=== PATIENT | female | born 1990 | race Caucasian/White ===

== ENCOUNTER 2018-10-02 11:09 | Emergency (ER) | payer BC, SELFPAY ==
[2018-10-02 11:13] VITALS: BP 126/75; PULSE 114; RESP 18; TEMP 38.8; O2SAT 98
--- NOTE | 2018-10-02 11:18 | DI.RAD_ITS ---
SYMPTOM/DIAGNOSIS: COUGH, FEVER PA AND LATERAL CHEST: There are no prior comparison exams. The heart size is normal. The lungs are suboptimally inflated on both views. No infiltrate or effusion is identified. IMPRESSION: Negative chest xray.
--- NOTE | 2018-10-02 11:24 | ED.GENADUL_ITS ---
Discharge Plan Disposition Patient Disposition: HOME Condition: Improving Discharge Details Chief Complaint: Headache Clinical Impression: Influenza A Primary Care Provider: Socorro Cano ED Provider: Stanley Roman Home Meds and New Rx's Prescriptions: New oseltamivir [Tamiflu] 75 mg capsule 75 mg PO BID 5 Days Qty: 10 RF: 0 No Action No Known Home Meds RF: 0 Discharge Instructions Instructions: Influenza (ED) Additional Instructions: Please take Tamiflu as prescribed. Tylenol and/or ibuprofen as needed for aches, pains, fever. Home to rest today. Small, frequent sips of fluids and/or popsicles to maintain hydration. May slowly advance a bland diet. Return to the emergency department for any acute concerns. Please follow-up with regular doctor if not improving in 5 days time. Medical Decision Making 28-year-old female with 2 days of upper respiratory illness with fever, chills, myalgias. Differential diagnosis includes pneumonia, influenza, viral syndrome. Patient had IV access established, she was given a fluid bolus and ketorolac, referred for chest x-ray and laboratory testing with influenza screen. Influenza A positive. Remainder of laboratories and diagnostics: Negative chest x-ray. Normal lactate and white blood cell count. Slightly low sodium of 134. Patient improved following fluids and medications. We will treat her with a course of Tamiflu. Discussed with her home medicine as well as anticipated course of resolution. She is stable for discharge home at this time Lab Data Lab results reviewed: Yes I reviewed the patient's lab results. Laboratory Results - last 24 hr 10/02/18 10/02/18 10/02/18 12:00 12:00 12:00 WBC 6.11 RBC 4.80 Hgb 13.8 Hct 41.9 MCV 87.3 MCH 28.8 MCHC 32.9 RDW 13.9 Plt Count 226 MPV 9.7 Immature Gran % 0.2 Neutrophils % 76.2 Lymphocytes % 6.7 Monocytes % 16.5 Eosinophils % 0.2 Basophils % 0.2 Absolute Neutrophils 4.66 Absolute Lymphocytes 0.41 L Absolute Monocytes 1.01 H Absolute Eosinophils 0.01 Absolute Basophils 0.01 Sodium 134 L Potassium 3.5 Chloride 99 Carbon Dioxide 25.5 Anion Gap 9.5 BUN 6 L Creatinine 0.89 Estimated GFR/1.73 m2 >= 60.00 Glucose 105 H Lactate 0.6 Calcium 9.1 Total Bilirubin 0.5 AST 26 ALT 36 Alkaline Phosphatase 38 L Total Protein 8.2 Albumin 4.1 HPI General Mode of arrival: ambulatory . Date/Time Provider Initiated Documentation: 10/02/18 11:12 . Limitations to Documentation: no limitations . Information obtained by: patient . History of Present Illness 28 year old F presents to the emergency department with the chief complaint of Cough, congestion, fever, myalgias, headache over 2 days time., described as moderate, Quality is described as aching, and is localized to the chest. Patient reports no radiation. Patient started experiencing this day(s) and it has been constant. No relieving factors improve symptom(s), No exacerbating factors reported . Patient notes cough, fever/chills, headaches, loss of appetite and malaise. Patient did receive the following treatments prior to arrival, none Related Data Home Medications Medication Instructions Recorded Confirmed Unknown [No Known Home Meds] 10/02/18 10/02/18 oseltamivir [Tamiflu] 75 mg PO BID 5 Days #10 cap 10/02/18 Previous Rx's Medication Instructions Recorded oseltamivir [Tamiflu] 75 mg PO BID 5 Days #10 cap 10/02/18 Allergies Allergy/AdvReac Type Severity Reaction Status Date / Time codeine Allergy Unverified 10/02/18 11:20 General Stated Complaint: Headache JAYANT: 3 Review of Systems Review of Systems 8 systems reviewed and otherwise negative [facility] Social History Smoking/Tobacco Use Status: Never Exam Narrative Exam Narrative: GEN: awake, alert, oriented 3. Pleasant, well groomed, interactive. HEAD: Normocephalic, atraumatic ENT: Mucous membranes moist, oropharynx unremarkable, External ear exam unremarkable EYES: PERRL, EOMI NECK: Full ROM, no ORION, no menigismus CHEST/RESP: Nontender, clear to auscultation bilateral, no wheeze/rhonchi/rales CARDIOVASCULAR: Tachycardic in rate, no murmur, rub evelyn. 2+ Rad pulse bilateral ABDOMEN: Soft, nontender, no mass. +Bowel sounds EXT: Full ROM, no edema, no rash Neuro: Grossly normal neurologic exam, conversant, interactive. Psych: Speech fluent, thoughts congruent, affect normal Course Vital Signs Temperature 38.8 C H 10/02/18 11:13 Pulse 114 H 10/02/18 11:13 Respiratory Rate 18 10/02/18 11:13 Blood Pressure 126/75 10/02/18 11:13 Pulse Oximetry 98 10/02/18 11:13 Temperature 38.8 C H 10/02/18 11:13 Temperature Source Temporal Artery Scan 10/02/18 11:13 Pulse 114 H 10/02/18 11:13 Respiratory Rate 18 10/02/18 11:13 Respiratory Effort Non-Labored 10/02/18 11:18 Blood Pressure 126/75 10/02/18 11:13 Blood Pressure Position Supine 10/02/18 11:13 Pulse Oximetry 98 10/02/18 11:13 Oxygen Delivery Method Room Air 10/02/18 11:13 Oxygen Flow Rate 0 10/02/18 11:13 Pain Level 7 10/02/18 11:13
[2018-10-02 12:12] LABS: Lactate 0.6 mmol/L (0.6-1.4)
[2018-10-02 12:15] LABS: Abs Immature Grans 0.01 k/cumm (0.0-0.09); Absolute Basophil Count 0.01 k/cumm (0.0-0.2); Absolute Eosinophil Count 0.01 k/cumm (0.0-0.7); Absolute Lymphocyte Count 0.41 k/cumm (1.2-3.4); Absolute Monocyte Count 1.01 k/cumm (0.11-0.7); Absolute Neutrophil Count 4.66 k/cumm (1.2-6.7); Basophils % 0.2; Eosinophils % 0.2; HCT 41.9 % (36.0-46.0); HGB 13.8 g/dL (12.0-15.5); Immature Grans % 0.2; Lymphocytes % 6.7; Mean Corp. HGB Concentration 32.9 g/dL (32.0-36.0); Mean Corpuscular Hemoglobin 28.8 pg (27.0-33.0); Mean Corpuscular Volume 87.3 fL (80-95); Mean Platelet Volume 9.7 fL (8.0-11.0); Monocytes % 16.5; Neutrophils % 76.2; Platelet Count 226 x1000/uL (130-400); RBC Distribution Width 13.9 % (11.7-14.6); White Blood Cell Count 6.11 k/cumm (4.4-10.8)
[2018-10-02] MEDS: Normal Saline 1,000 ML 1000 ML IV (12:23)
[2018-10-02] MEDS: Ketorolac 30 MG/ML VIAL IVP (12:23)
--- NOTE | 2018-10-02 12:25 | DI.VRAD_ITS ---
EXAM: XR Chest, 2 Views EXAM DATE/TIME: 10/02/2018 11:23 AM CLINICAL HISTORY: 28 years old, female; Signs and symptoms; Cough and fever TECHNIQUE: XR of the chest, 2 views. COMPARISON: No relevant prior studies available. FINDINGS: Lungs: Unremarkable. No consolidation. Pleural space: Unremarkable. No pleural effusion. No pneumothorax. Heart/Mediastinum: Unremarkable. No cardiomegaly. Bones/joints: Unremarkable. IMPRESSION: No acute findings. Dictated and Authenticated by: Nhi Eaton MD. Ordering:KATY Angel MD
[2018-10-02 12:26] VITALS: BP 123/70; PULSE 106; RESP 17; TEMP 38.7
[2018-10-02 12:28] LABS: ALT 36 U/L (12-78); AST 26 U/L (15-37); Albumin 4.1 g/dL (3.4-5.0); Alkaline Phosphatase 38 U/L (46-116); Anion Gap 9.5 mmol/L (3-11); BUN 6 mg/dL (7-18); Bilirubin, Total 0.5 mg/dL (0.2-1.0); CO2 25.5 mmol/L (21.0-32.0); CREATININE 0.89 mg/dL (0.55-1.02); Calcium 9.1 mg/dL (8.5-10.1); Chloride 99 mmol/L (98-107); Glucose 105 mg/dL (70-100); Potassium 3.5 mmol/L (3.5-5.1); Sodium 134 mmol/L (136-145); Total Protein 8.2 g/dL (6.4-8.2)
[2018-10-02 13:06] VITALS: BP 113/62; PULSE 102; RESP 17; TEMP 38.3; O2SAT 97
== END 2018-10-02 13:39 | disposition home or self-care (01) ==
PROVIDERS: Emergency Provider Emergency Medicine; PCP Nurse Practitioner Family
DX: J10.1 Influenza due to other identified influenza virus with other respiratory manifestations (principal)
CPT/HCPCS: 36415; 80053; 87449; 96361; 96374; 99284; 71046; 83605; 85025; 99283; J1885

== ENCOUNTER 2022-11-16 07:52 | Emergency (ER) | payer BC, SELFPAY ==
[2022-11-16] VITALS (12 sets, daily range): BP systolic 133–145; BP diastolic 87–95; PULSE 86–111; RESP 24; TEMP 36.6; O2SAT 98–100
--- NOTE | 2022-11-16 07:45 | RT.EKG_ITS ---
APPROVED REPORT Exam: Resting ECG Reason for Exam: ekg Patient Location: E HR:97 bpm ECG Measurements Heart Rate 97 AXIS NJ 153 P 65 QRSd 90 QRS -16 QT 359 T 26 QTc 457 Conclusion Sinus rhythm...normal P axis, V-rate 60- 99 Physician: no stemi, no [id number]
--- NOTE | 2022-11-16 08:30 | DI.RAD_ITS ---
Exam(s) XR CHEST 2V PA LATERAL EXAM: XR CHEST 2V PA LATERAL CLINICAL HISTORY: Shortness of breath. TECHNIQUE: 2D digital imaging was performed. COMPARISON: CR XR CHEST 2V PA LATERAL from 10/02/2018 FINDINGS: 2 views: Heart size is normal. The mediastinum is not widened. Lungs are clear. No infiltrates nor pleural effusions. IMPRESSION: No acute pulmonary findings. DATA REPOSITORY: RADIATION DOSE DELIVERED:
--- NOTE | 2022-11-16 08:35 | ED.GENADUL_ITS ---
Discharge Plan Disposition Patient Disposition: Home Condition: Improving Discharge Details Clinical Impression: URI (upper respiratory infection) Primary Care Provider: Socorro Cano ED Provider: Shahab Ashton Home Meds and New Rx's Prescriptions: New doxycycline hyclate 100 mg capsule 100 mg PO BID Qty: 10 0RF benzonatate 200 mg capsule 200 mg PO TID PRN (Reason: cough) Qty: 30 0RF albuterol sulfate 90 mcg/actuation HFA aerosol inhaler 2 puff inhalation Q4H PRN (Reason: shortness of breath or wheezing) Qty: 6.7 0RF Continued cyclobenzaprine 10 mg tablet 10 mg PO PRN PRN Patient Comments: TAKE 1 TABLET BY MOUTH ONCE DAILY AT BEDTIME NEEDED FOR MUSCLE TIGHTNESS melatonin 5 mg Tablet 5 mg PO HS PRN Discharge Instructions Instructions: Upper Respiratory Infection (ED) Additional Instructions: Continue to rest and stay well-hydrated. If you develop any new or significant worsening of symptoms feel free to return the emergency department for reass essment. You have been given a paper prescription for doxycycline. You may continue to monitor your symptoms over the next 24 to 48 hours. For any worsening of symptoms, persistent fever, or significant worsening of your cough please start this antibiotic and take until gone otherwise if you are improving with conservative management you do not need this and you may throw the prescription away. If not continuing to see resolution of symptoms or have any other concerns for lack of improvement over the next week follow-up with your primary care provider for recheck Stand Alone Forms: Work Release Referrals: Socorro Cano [Primary Care Provider] - 1 week (As needed for reassessment) Medical Decision Making Patient presenting to the emergency department with chief shortness of breath, chest pain, cough, nasal congestion, sore throat. Patient reports this is been going on for the last week but today at work after having a coughing spell she started having slight increase of chest discomfort along with dizzy episode. Due to this episode patient is presenting to the emergency department for evaluation. She does state that some of the chest discomfort radiates into her left arm and back. Patient states subjective fever and chills but denies any known elevated temperature. Physical exam shows symptoms consistent with viral illness. No signs of meningitis, patient is nontoxic, at my assessment patient is not tachycardic, and has appropriate blood pressure. 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 Suspect viral illness with some potential pleurisy or bronchitis type feature. While symptoms are not clinically consistent with aortic dissection ACS or PE we will plan on doing lab work due to patient's medical history but I feel comfortable performing plain film chest x-ray and D-dimer given low clinical suspicion. Pending results we will give patient Tessalon Perles and nebulizer to see if this helps with her symptoms. Please see physician report for full interpretation of EKG but upon my review patient is in sinus rhythm, no acute findings to suggest ACS or STEMI are present. Reviewed patient's labs and CBC does show slight leukocytosis with also noted elevated neutrophils and monocytes, CMP shows a potassium of 3.3 which we will replete orally, otherwise CMP is unremarkable. Troponin is negative D-dimer is also less than 500. Patient is negative for COVID flu and RSV. And chest x-ray shows no acute findings. Reassessed patient and patient does state improvement after nebulizer and Tessalon Perles. I will prescribe these on an outpatient basis for her to continue to help with symptoms. At this time I do suspect viral illness but given elevation of white count I also question potential early pneumonia. Patient was given a pocket prescription for doxycycline but instructed to wait on the antibiotic and observe symptoms over the next 24 to 48 hours. Did give clear instructions of when patient should start this. After discussion of diagnosis and plan of care patient has no further needs, questions, or concerns and states clear understanding to return to the emergency department for any worsening symptoms. This documentation was generated using [employer] dictation system, please disregard any oddities of phrase or misspellings. HPI General Mode of arrival: ambulatory . Date/Time Provider Initiated Documentation: 11/16/22 08:20 . Limitations to Documentation: no limitations . Information obtained by: patient and RN notes reviewed . History of Present Illness 32 year old F presents to the emergency department with the chief complaint of Chest pain, cough, nasal congestion, sore throat, described as moderate, with intensity rated at 4. Quality is described as aching, and is localized to the chest. Patient extremity. Patient started experiencing this week(s) (1) and it has been constant. No relieving factors improve symptom(s), Other factors that worsen symptoms (Mold exposure) . Patient notes malaise; denies nausea/vomiting. Patient did receive the following treatments prior to arrival, none Related Data Home Medications Medication Instructions Recorded Confirmed albuterol sulfate 90 mcg/actuation 2 puff inhalation Q4H PRN 11/16/22 aerosol inhaler shortness of breath or wheezing #6.7 grams benzonatate 200 mg capsule 200 mg PO TID PRN cough #30 caps 11/16/22 cyclobenzaprine 10 mg tablet 10 mg PO PRN PRN 11/16/22 11/16/22 doxycycline hyclate 100 mg capsule 100 mg PO BID #10 caps 11/16/22 melatonin 5 mg tablet 5 mg PO HS PRN 11/16/22 11/16/22 Previous Rx's Medication Instructions Recorded albuterol sulfate 90 mcg/actuation 2 puff inhalation Q4H PRN 11/16/22 aerosol inhaler shortness of breath or wheezing #6.7 grams benzonatate 200 mg capsule 200 mg PO TID PRN cough #30 caps 11/16/22 doxycycline hyclate 100 mg capsule 100 mg PO BID #10 caps 11/16/22 Allergies Allergy/AdvReac Type Severity Reaction Status Date / Time codeine Allergy Unverified 11/16/22 08:01 General Stated Complaint: GenMedical JAYANT: 3 Review of Systems Constitutional Constitutional: Reports body ache(s), Reports chills, Reports fever(s), Reports headache(s) and Reports malaise Eyes Eyes: Denies eye discharge ENT Ears, Nose, Mouth, and Throat: Reports as per HPI, Denies ear discharge, Denies otalgia, Reports headache(s), Reports nasal congestion, Reports nasal discharge, Denies neck pain, Reports sore throat and Denies throat swelling Cardiovascular Cardiovascular: Reports chest pain and Reports dyspnea Respiratory Respiratory: Reports cough, Reports pain with cough and Reports dyspnea Gastrointestinal Gastrointestinal: Denies abdominal pain, Denies diarrhea, Denies nausea and Denies vomiting Musculoskeletal Musculoskeletal: Denies neck pain Integumentary/Breasts Skin/Breast: Reports system reviewed and no additional complaints, except as documented Neurologic Neurologic: Reports headache(s) Allergic/Immunologic Allergic/Immunologic: Denies throat swelling PFSH All Active Problems (Updated 11/16/22 @ 10:12 by Shahab Ashton NP) URI (upper respiratory infection) (Acute) May-Danlos syndrome (Acute) Social History Smoking/Tobacco Use Status: Never Smoking risk assessment performed?: Yes Alcohol Intake: current Alcohol Intake frequency: a few times a week Alcohol type: hard liquor Drug use: Occasionally Substance use type: marijuana Do you feel safe at home: Yes Do you feel safe in your relationship?: Yes Exam Const General: cooperative, comfortable and no acute distress Orientation: alert and awake [facility] Head: normal to inspection, normocephalic and atraumatic Ears: hearing grossly normal bilaterally and TM's normal bilaterally General nose exam: external nose normal Face and sinus: no erythema Mouth: oral mucosae normal, no drooling, no muffled voice and no trismus Throat: posterior oropharynx normal, uvula midline and abnormal tonsil bilaterally erythema and hypertrophy; no exudates Neck Neck: normal visual inspection, full ROM, no meningeal signs, trachea midline and supple Carotids: normal carotid upstroke and no bruits Resp Effort & Inspection: normal respiratory effort, able to speak in complete sentences and cough Quality of cough: dry Auscultation: clear to auscultation bilaterally Cardio Jugular venous pressure: no JVD Palpation: normal PMI Rate: regular rate Rhythm: regular rhythm Heart Sounds: S1 normal, S2 normal, normal S1 and S2, no click, no gallops, no murmurs and no rubs Bruits: no abdominal aortic bruits and no carotid bruits Pulses: radial pulses present bilaterally 2+ GI Inspection: normal to inspection Palpation: soft, no aortic enlargement, no pulsatile masses and nontender Auscultation: normal bowel sounds Skin General skin exam: no rashes or lesions noted and dry skin (warm) Neuro General: patient alert, patient awake, patient oriented x3, gait normal and moves all extremities Cognition: normal cognition Speech: speech normal Course Vital Signs Vital signs: Vital Signs Temperature 36.6 C 11/16/22 07:55 Pulse 111 H 11/16/22 07:55 Respiratory Rate 24 11/16/22 07:55 Blood Pressure 138/95 H 11/16/22 07:55 Pulse Oximetry 100 11/16/22 07:55 Temperature 36.6 C 11/16/22 07:55 Temperature Source Skin 11/16/22 07:55 Pulse 111 H 11/16/22 07:55 Respiratory Rate 24 11/16/22 08:04 Respiratory Effort Short of Breath 11/16/22 08:04 Respiratory Depth Normal 11/16/22 08:04 Respiratory Pattern Normal 11/16/22 08:04 Blood Pressure 138/95 H 11/16/22 07:55 Blood Pressure Position Supine 11/16/22 07:55 Pulse Oximetry 100 11/16/22 07:55 Oxygen Delivery Method Room Air 11/16/22 07:55 Oxygen Flow Rate 0 11/16/22 07:55 Pain Level 6 11/16/22 07:55 PAWSS Have you Been Recently Intoxicated or Drunk Within the Last 30 days?: Yes Have you Ever Experienced Previous Episodes of Alcohol Withdrawal?: No Have you ever Experienced Withdrawal Seizures?: No Have you ever Experienced Delirium Tremens(DT)s?: No Have you ever undergone Alcohol Rehabilitation Treatment (i.e, inpt ot outpatient treatment programs)?: No Have you ever Experienced Blackouts?: No Have you ever Combined Alcohol with other Downers within the last 90 days?: Yes Have you ever Combined Alcohol with any other Substance of Abuse during the last 90 days?: No Positive Blood Alcohol level on Presentation? [PCS.BAL]: No Evidence of Increased Autonomic Activity (i.e. HR>120, tremor, sweating, agitation, nausea)?: No Result: 1
[2022-11-16] MEDS: Albuterol 2.5 MG/3 ML INH SOLN VIAL UPD (08:48)
[2022-11-16] MEDS: Benzonatate 100 MG CAP PO (08:48)
[2022-11-16 08:54] LABS: Abs Immature Grans 0.04 10^3/uL (0.0-0.06); Absolute Basophil Count 0.07 10^3/uL (0.0-0.2); Absolute Eosinophil Count 0.19 10^3/uL (0.0-0.7); Absolute Lymphocyte Count 1.39 10^3/uL (1.2-3.4); Absolute Monocyte Count 1.23 10^3/uL (0.1-0.8); Absolute Neutrophil Count 9.14 10^3/uL (1.2-6.7); Basophils % 0.6; Eosinophils % 1.6; HCT 41.5 % (36.0-46.0); HGB 13.7 g/dL (11.2-15.7); Immature Grans % 0.3; Lymphocytes % 11.5; MCH 28.8 pg (27.0-33.0); MCV 87 fL (80-95); MPV 9.2 fL (8.0-11.0); Monocytes % 10.2; Neutrophils % 75.8; Platelet Count 306 10^3/uL (130-400); RBC 4.75 10^6/uL (3.93-5.22); RDW 12.7 % (11.7-14.6); RDW-SD 41.1 fL; WBC 12.06 10^3/uL (4.4-10.8)
[2022-11-16 09:11] LABS: ALT 22 U/L (14-59); AST 20 U/L (15-37); Albumin 3.9 g/dL (3.4-5.0); Alkaline Phosphatase 54 U/L (46-116); Anion Gap 7.8 mmol/L (3-11); BUN 8 mg/dL (7-18); Bilirubin, Total 0.6 mg/dL (0.2-1.0); CO2 28.2 mmol/L (21.0-32.0); CREATININE 0.8 mg/dL (0.55-1.02); Calcium 9.1 mg/dL (8.5-10.1); Chloride 102 mmol/L (98-107); Estimated GFR 99.71 (mL/min/1.73m2); Glucose 94 mg/dL (74-106); Magnesium 2.1 mg/dL (1.8-2.4); Potassium 3.3 mmol/L (3.5-5.1); Sodium 138 mmol/L (136-145); Troponin I < 50 ng/L (<or=60)
[2022-11-16 09:12] LABS: COVID-19 PCR Negative (Negative); Influenza A PCR Negative (Negative); Influenza B PCR Negative (Negative); RSV PCR Negative (Negative)
[2022-11-16 09:13] LABS: Source Nasopharynx
[2022-11-16 09:27] LABS: D-Dimer 242 ng/mlFEU (<500)
--- NOTE | 2022-11-16 10:07 | DI.VRAD_ITS ---
PROCEDURE INFORMATION: Exam: XR Chest Exam date and time: 11/16/2022 9:19 AM Age: 32 years old Clinical indication: Other: Shortness of breath TECHNIQUE: Imaging protocol: Radiologic exam of the chest. 2image(s) are provided. Views: 2 views. COMPARISON: CR XR CHEST 2V PA LATERAL 10/02/2018 11:38 AM FINDINGS: Lungs: No lobar consolidation is appreciated. Pleural spaces: No pneumothorax or pleural effusion is appreciated. Heart/Mediastinum: The cardiomediastinal silhouette is normal. No cardiac decompensation is appreciated. Diaphragm: The hemidiaphragms are symmetric. Bones/joints: No fracture or dislocation is appreciated. Soft tissues: No radiopaque foreign body or subcutaneous emphysema is appreciated. Other findings: No significant interval changes are appreciated. IMPRESSION: No lobar consolidation is appreciated.No interval acute cardiopulmonary changes are appreciated. Dictated and Authenticated by: Yoni Bravo MD. Ordering:ORACIO Gudino MD
[2022-11-16] MEDS: Potassium Chloride 20 MEQ TABCR PO (10:24)
== END 2022-11-16 10:26 | disposition home or self-care (01) ==
PROVIDERS: Emergency Provider Nurse Practitioner Family; PCP Nurse Practitioner Family
DX: J06.9 Acute upper respiratory infection, unspecified (principal); R07.89 Other chest pain; R42 Dizziness and giddiness; D72.829 Elevated white blood cell count, unspecified; Q79.60 Ehlers-Danlos syndrome, unspecified; Z20.822 Contact with and (suspected) exposure to COVID-19
CPT/HCPCS: 36415; 80053; 81025; 87637; 93005; 94640; 99283; 99285; 71046; 83735; 84484; 85025; 85379; 93010; J7613